=== PATIENT | female | born 2000 | race Asian ===

== ENCOUNTER 2023-11-10 15:37 | Emergency (ER) | payer BC ==
[~2023-11-10] VITALS: Ht 154.9 cm; Wt 84.4 kg
[2023-11-10 15:43] VITALS: TEMP 97.8
[2023-11-10] MEDS ORDERED: DEXAMETHASONE SODIUM PHOSPHATE 4 MG INJ IM ONE (15:50)
[2023-11-10] MEDS ORDERED: FAMOTIDINE 20 MG TABLET PO ONE ×2 (15:51→15:56)
[2023-11-10] MEDS ORDERED: DEXAMETHASONE SODIUM PHOSPHATE 4 MG INJ ONE (15:56)
[2023-11-10 16:45] VITALS: BP 124/60
== END 2023-11-10 16:47 | disposition home or self-care (01) ==
LOC: ED 15:37
DX: R21 Rash and other nonspecific skin eruption (principal); L50.0 Allergic urticaria
CPT/HCPCS: 81025; 96372; 99283; J1100